=== PATIENT | male | born 1945 | race Caucasian/White ===

== ENCOUNTER → 2017-01-30 | Outpatient (CLI) | payer OTHER ==
[~2017-01-30] MED LIST: AMBIEN 5 MG TABL5 M1 PO; AMITRIPTYLINE H10 M1 PO; ASPIRIN325 PO; ATORVASTATIN CA40 MG PO; ATORVASTATIN CA80 MG PO; B-50 COMPLEX1 EAC1; B-50 COMPLEX1 EAC1 PO; B-COMPLEX-VITA1 EACH PO; CIALIS5 MG PO; COLACE 100 MG100 MG; FLOMAX0.4 MG PO; FOLIC ACID 40400 MC1 PO; KLOR-CON 10 ER10 MEQ PO; LIPITOR40 MG PO; NORCO 10-325 T1 EACH PO; NORCO 5-325 TA1 EACH PO; OMEPRAZOLE40 MG PO; OXYCODONE; OXYCODONE HCL-1 EAC1 PO; PREDNISONE 10 M10 M1 PO; PRILOSEC40 MG PO; RANITIDINE 150150 MG PO; SONATA10 MG PO; VITAMIN B-50 C0.4 MG PO; VITAMIN E400 UNIT PO; VITCB500GO PO
== END ==
LOC: RAD 11:36
DX: N20.0 Calculus of kidney (principal)

== ENCOUNTER → 2017-05-17 | Outpatient (CLI) | payer OTHER | LOC: MRI 09:15 | DX: M47.892 Other spondylosis, cervical region (principal); M54.12 Radiculopathy, cervical region; M25.78 Osteophyte, vertebrae; G95.89 Other specified diseases of spinal cord; Z98.890 Other specified postprocedural states ==

== ENCOUNTER → 2017-06-21 | Outpatient (CLI) | payer OTHER | LOC: RAD 13:50 | DX: M47.894 Other spondylosis, thoracic region (principal); M47.896 Other spondylosis, lumbar region; M47.892 Other spondylosis, cervical region; Z98.890 Other specified postprocedural states; V89.2XXA Person injured in unspecified motor-vehicle accident, traffic, initial encounter; Y93.89 Activity, other specified; Y92.89 Other specified places as the place of occurrence of the external cause; Y99.8 Other external cause status ==

== ENCOUNTER → 2018-06-03 | Outpatient (CLI) | payer OTHER ==
--- NOTE | 2018-06-03 09:24 | 2DMMODE ---
[facility] [email or web address] [address] 2 D/M-MODE ECHOCARDIOGRAM Name: JADA WAGNER Room #: REG [facility]#: [id number] Admission: 06/03/18 Attend Phys: Raúl Merchant MD Discharge: Date of : 47 Date of Service: 06/03/18 0924 Report #: [id number] THIS REPORT FOR: //name// APPROVED REPORT Study performed: 06/03/2018 07:58:28 EXAM: Comprehensive 2D, Doppler, and color-flow Echocardiogram Patient Location: Out-Patient Status: routine BSA: 1.86 HR: 83 bpm BP: 130/82 mmHg Rhythm: NSR/Irregular Other Information Study Quality: Adequate Indications Chest Pain Hx: HLP 2D Dimensions RVDd: 41.72 mm IVSd: 10.52 (7-11mm) LVOT Diam: 19.96 (18-24mm) LVDd: 45.69 mm PWd: 10.25 (7-11mm) Ascending Ao: 33.99 (22-36mm) LVDs: 31.92 (25-40mm) Aortic Root: 33.00 mm Volumes Left Atrial Volume (Systole) Single Plane 4CH: 34.51 mL Single Plane 2CH: 56.37 mL LA ESV Index: 26.00 mL/m2 Aortic Valve AoV Peak Govind.: 1.30 m/s AO Peak Gr.: 6.80 mmHg LVOT Max P.37 mmHg LVOT Max V: 0.77 m/s SABINE Vmax: 1.85 cm2 Mitral Valve E/A Ratio: 0.8 MV Decel. Time: 216.43 ms MV E Max Govind.: 0.65 m/s [facility] [address] [address] 2 D/M-MODE ECHOCARDIOGRAM Name: JADA WAGNER Room #: REG [facility]#: [id number] Admission: 06/03/18 Attend Phys: Raúl Merchant MD Discharge: Date of : 47 Date of Service: 06/03/18 0924 Report #: [id number] MV A Govind.: 0.79 m/s MV PHT: 62.77 ms IVRT: 73.82 ms Pulmonary Valve PV Peak Govind.: 1.19 m/s PV Peak Gr.: 5.62 mmHg Pulmonary Vein P Vein S: 0.64 m/s P Vein D: 0.40 m/s P Vein S/D Ratio: 1.60 Tricuspid Valve TR Peak Govind.: 2.42 m/s RAP Estimate: 5.00 mmHg TR Peak Gr.: 23.35 mmHg PA Pressure: 28.00 mmHg Left Ventricle The left ventricle is normal size. There is normal left ventricular wall thickness. Left ventricular systolic function is normal. LVEF is 55%. Mild diastolic dysfunction is present (impaired relaxation pattern). Right Ventricle The right ventricle is normal size. The right ventricular systolic function is normal. Atria The left atrium size is normal. The right atrium size is normal. Aortic Valve The Aortic valve is sclerotic. No aortic regurgitation is present. There is no aortic valvular stenosis. Mitral Valve Mitral valve leaflets are thickened. Mild mitral regurgitation. No evidence of mitral valve stenosis. Tricuspid Valve The tricuspid valve is normal in structure. Trace to mild tricuspid regurgitation. Estimated PAP is 28mmHg. [facility] [address] [place] [address] 2 D/M-MODE ECHOCARDIOGRAM Name: JADA WAGNER Room #: REG [facility]#: [id number] Admission: 06/03/18 Attend Phys: Raúl Merchant MD Discharge: Date of : 47 Date of Service: 06/03/18 0924 Report #: [id number] Pulmonic Valve The pulmonary valve is normal in structure. Mild to moderate pulmonic regurgitation. Great Vessels The aortic root is normal in size. The ascending aorta is normal in size. IVC is normal in size and collapses >50% with inspiration. Pericardium There is no pericardial effusion. <Conclusion> The left ventricle is normal size. There is normal left ventricular wall thickness. Left ventricular systolic function is normal. Mild diastolic dysfunction is present (impaired relaxation pattern). The right ventricle is normal size. The left atrium size is normal. The Aortic valve is sclerotic. Mitral valve leaflets are thickened. Mild mitral regurgitation. Trace to mild tricuspid regurgitation. Estimated PAP is 28mmHg. <ELECTRONICALLY SIGNED> By: Raúl Merchant MD 06/03/18923 3 3 Raúl Merchant MD /INF
== END ==
LOC: NUC 07:15
DX: I34.0 Nonrheumatic mitral (valve) insufficiency (principal); E78.5 Hyperlipidemia, unspecified

== ENCOUNTER → 2018-08-09 | Outpatient (CLI) | payer OTHER ==
[~2018-08-09] VITALS: Ht 167.6 cm; Wt 74.8 kg
[~2018-08-09] MED LIST changes: +ASPIR 8181 MG PO; +FOLIC ACID1 MG PO; +HYDROCODON-ACE1 EAC5 PO; +SUPER B COMPLE1 EAC2 PO
--- NOTE | ~2018-08-09 | P ---
[facility] [place] [address] PROCEDURE REPORT Name: JADA WAGNER Room #: REG [facility]mie [facility]#: [id number] Admission: 08/09/18 ������������������ Attend Phys: Burton Hobbs Discharge: ������������������ Date of : 47 Report #: [id number] THIS REPORT FOR: //name// CC: Burton Rodriguez MD DATE OF SERVICE: 08/09/2018 PROCEDURE PERFORMED: Upper endoscopy with biopsies. HISTORY OF PRESENT ILLNESS: The patient is a 73-year-old male with a long history of gastroesophageal reflux disease, currently taking omeprazole 40 mg in the morning and Zantac 150 b.i.d. Despite this regimen, he has breakthrough symptoms of heartburn apparently at night. This has awoken him several nights in a row. He denies any dysphagia. No nausea or vomiting. His weight has been stable. Because of his chest discomfort, he underwent a cardiac evaluation, which included an echocardiogram, EKG and a nuclear stress test, all of which were reportedly negative. Plan is for upper endoscopy. DESCRIPTION OF PROCEDURE: The risks and benefits of the procedure were explained to the patient, those risks including but not limited to bleeding, perforation and the risk of sedation. He understood these risks and gave informed consent. Sedation was given using propofol per Anesthesia. Next, using a standard Olympus upper endoscope, the scope was placed in the patient's mouth and advanced under direct vision through the esophagus, stomach and into the second portion of the duodenum. The upper and mid esophagus was normal in appearance. At the distal esophagus, 2 small pink mucosal tongues were noted. Biopsies were obtained to rule out the possibility of Smith's. No evidence of esophagitis or stricture. A small hiatal hernia was noted. Overall, the gastric mucosa was normal. The pylorus was normal and patent. The duodenal bulb, first and second portion were all normal. The scope was then withdrawn and the procedure terminated. The patient tolerated the procedure well. IMPRESSION: 1. 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 2. Small hiatal hernia. 3. Otherwise, normal upper endoscopy. RECOMMENDATIONS: 1. Await biopsy results. 2. We discussed switching his Prilosec to 20 mg b.i.d. and perhaps continuing his Zantac to see if this is helpful for his breakthrough symptoms at night. Also, advised the patient to raise the head of his bed. Could also consider a trial of Reglan at bedtime, which may be helpful. [facility] [address] [place] [address] PROCEDURE REPORT Name: JADA WAGNER Room #: REG [facility]#: [id number] Admission: 08/09/18 ������������������ Attend Phys: Burton Hobbs Discharge: ������������������ Date of : 47 Report #: [id number] 3. We discussed the possibility of a fundoplication type of surgery if needed. Thank you for allowing me to participate in his care. ��������������������������������������������� ���������������������������������������� By: ��������������������������������������������� [id number] [id number] Burton Padilla MD /renée
--- NOTE | 2018-08-12 17:06 | PATH ---
[facility] [address] [place] [address] PATHOLOGY RPT PROCEDURE Name: LAMONT SIMMS ELAINE Room #: REG KAYLEEN Rosenbaum.#: [id number] ������������������ Admission: 08/09/18 ������������������ Date of : 47 Discharge: Report #: [id number] Path Case #: [id number] [facility] Accession Number: [id number] . 01 Material submitted: . esophagus - BX DISTAL ESOPHAGUS R/O BARRETTS BF-C. Modifiers: distal . 01 Clinical history: . Pre-OP DX: GERD Post-OP DX: GERD, hiatal hernia . 02 Diagnosis: Gastroesophageal mucosa, distal esophagus rule out Smith's, endoscopic biopsy: - Gastric cardia-type mucosa with mild chronic inflammation. - Negative for intestinal metaplasia or dysplasia. - Squamous mucosa with mild esophagitis and features compatible with reflux. (IUV:pit 08/12/2018) QTP/08/12/2018 . 02 Electronically signed: . Felicia Strickland MD, Pathologist NPI- [id number] . 01 Gross description: . Received in formalin labeled "Lamont Simms, [place] distal esophagus, rule out Smith's," are 2 segments of rendon soft tissue measuring 0.9 x 0.2 x 0.2 cm in aggregate dimensions and ranging from 0.4 to 0.5 cm in maximum dimension. The specimen is submitted entirely in cassette A1. (TSD; 08/09/2018) TOB/TOB . 02 Pathologist provided ICD-10: K29.50, K21.9 . 02 CPT . 543781 Specimen Comment: A courtesy copy of this report has been sent to Specimen Comment: [phone], . Specimen Comment: Report sent to / JIM Performed at: [address], [place], [place] [id number] MD Wally Landers MD Phone: [phone] Performed at: 02 [facility] [address] [place] [address] PATHOLOGY RPT PROCEDURE Name: LAMONT SIMMS Room #: REG KAYLEEN Cassidy#: [id number] ������������������ Admission: 08/09/18 ������������������ Date of : 47 Discharge: Report #: [id number] Path Case #: [id number] [address] [place], [place] [id number] MD Felicia Strickland MD Phone: [phone]
== END | disposition home or self-care (01) ==
LOC: GI 08:03
DX: K29.50 Unspecified chronic gastritis without bleeding (principal); K21.0 Gastro-esophageal reflux disease with esophagitis; K44.9 Diaphragmatic hernia without obstruction or gangrene; E78.5 Hyperlipidemia, unspecified; N40.0 Benign prostatic hyperplasia without lower urinary tract symptoms; Z87.442 Personal history of urinary calculi; Z98.890 Other specified postprocedural states; Z86.711 Personal history of pulmonary embolism; Z79.01 Long term (current) use of anticoagulants; Z98.41 Cataract extraction status, right eye; Z98.42 Cataract extraction status, left eye; Z96.642 Presence of left artificial hip joint; Z79.899 Other long term (current) drug therapy; Z79.82 Long term (current) use of aspirin
CPT/HCPCS: 62110; 62900

== ENCOUNTER → 2019-03-04 | Outpatient (CLI) | payer OTHER | LOC: RAD 10:22 | DX: N20.0 Calculus of kidney (principal) ==

== ENCOUNTER → 2019-03-07 | Outpatient (CLI) | payer OTHER | LOC: RAD 08:53 | DX: N20.0 Calculus of kidney (principal) ==

== ENCOUNTER → 2020-02-26 | Outpatient (CLI) | payer OTHER | LOC: RAD 12:17 | PROVIDERS: ATTEND Urology | DX: N20.0 Calculus of kidney (principal) ==